=== PATIENT | male | born 1965 | race Caucasian/White ===

== ENCOUNTER 2016-08-07 10:02 | Emergency (ER) | payer MEDICAID ==
[~2016-08-07] VITALS: Wt 75.0 kg
[~2016-08-07 10:02] MED LIST: BACTDS PO; CEPH-443 PO; IBUP-1542 PO; METF500T4 PO
[2016-08-07 11:59] LABS: URINE BLOOD (Dip) POC 1+ (NEGATIVE)
[2016-08-07] MEDS ORDERED: CEPH-443 PO (12:09)
[2016-08-07] MEDS ORDERED: TAMS-14 PO (12:09)
[2016-08-07] MEDS ORDERED: BISM262O23 PO (12:13)
--- NOTE | 2016-08-07 12:16 | ERD ---
ER Documentation Chief Complaint Date/Time DATE: 08/07/16 TIME: 12:15 Chief Complaint DIARRHEA FOR 1 DAY AND DYSURIA FOR THE PAST MONTH. NO BLOOD IN DIARRHEA HPI This 50-year-old male presents with multiple complaints. He has had a sensation of dysuria for the last month. States he has had an infection in the past and is requesting antibiotics for denies any fevers or vomiting. He has an additional complaint of diarrhea for 1 day is watery without blood or mucus. Denies abdominal pain, cough, shortness breath or chest pain. He does states that his urine stream is somewhat irregular possibly sprays sometimes. Denies any penile discharge or possible exposures to recent STDs ROS All systems reviewed and are negative except as per history of present illness. Medications Home Meds Active Scripts Bismuth Subsalicylate* (Pepto-Bismol*) 262 Mg/15 Ml Oral.susp, 15 ML PO Q3H Y for DIARRHEA for 4 Days, ML Prov:REMA AGUIRRE MD 08/07/16 Tamsulosin Hcl* (Flomax*) 0.4 Mg Cap.er.24h, 0.4 MG PO QPM, #30 CAP Prov:REMA AGUIRRE MD 08/07/16 Cephalexin* (Keflex*) 500 Mg Capsule, 500 MG PO QID for 7 Days, CAP Prov:REMA AGUIRRE MD 08/07/16 Ibuprofen* (Motrin*) 600 Mg Tab, 600 MG PO Q6H Y for PAIN AND OR ELEVATED TEMP, #30 TAB Prov:KESHAV COLLINS PA-C 06/14/16 Sulfamethoxazole-Trimethoprim* (Bactrim* DS) 800-160 Mg Tab, 1 TAB PO BID for 7 Days, TAB Prov:KESHAV COLLINS PA-C 06/14/16 Cephalexin* (Keflex*) 500 Mg Capsule, 500 MG PO QID for 10 Days, CAP Prov:KESHAV COLLINS PA-C 06/14/16 Metformin* (Glucophage*) 500 Mg Tab, 500 MG PO BID, #30 TAB Prov:KESHAV COLLINS PA-C 06/14/16 Allergies Allergies: Coded Allergies: No Known Allergy (Unverified , 06/14/16) PMhx/Soc History of Surgery: No Anesthesia Reaction: No Hx Neurological Disorder: No Hx Respiratory Disorders: No Hx Cardiac Disorders: No Hx Psychiatric Problems: No Hx Alcohol Use: No Hx Substance Use: No Hx Tobacco Use: Yes Smoking Status: Current some day smoker Physical Exam Vitals Vital Signs Date Time Temp Pulse Resp B/P Pulse Ox O2 Delivery O2 Flow Rate FiO2 08/07/16 10:14 88 21 128/81 98 Physical Exam Const: [] Alert, [id number] per Head: Atraumatic Eyes: Normal Conjunctiva ENT: Normal External Ears, Nose and Mouth. Neck: Full range of motion..~ No meningismus. Resp: Clear to auscultation bilaterally Cardio: Regular rate and rhythm, no murmurs Abd: Soft, non tender, non distended. Normal bowel sounds Skin: No petechiae or rashes Back: No midline or flank tenderness Ext: No cyanosis, or edema Neur: Awake and alert Psych: Normal Mood and Affect Results 24 hrs Laboratory Tests Test 08/07/16 12:00 Bedside Urine Blood 1+ Bedside Urine Glucose (UA) 0.50% Bedside Urine Ketones (LAB) Trace Bedside Urine Leukocyte Esterase (L Negative Bedside Urine Nitrite (LAB) Negative Bedside Urine Protein (LAB) Negative Bedside Urine pH (LAB) 6.0 Procedures/MDM Urine shows slight glucose and trace ketones and hemoglobin without leukocytes, nitrites. Urine was sent for culture. Patient will be treated with Keflex by request of uncertain cause of symptoms. Patient may have prostatism will be treated with Flomax as well. Patient will referred to urology for further evaluation. Patient is advised to return for fevers, vomiting, shortness of breath or chest pain. Patient has no signs or symptoms of acute abdomen, ketoacidosis, sepsis, additional emergent causes of presenting symptoms Departure Diagnosis: Primary Impression: Diarrhea Diarrhea type: unspecified type Qualified Code: R19.7 - Diarrhea, unspecified type Additional Impression: Dysuria Condition: Stable Patient Instructions: Dysuria, Treating Diarrhea Referrals: JOSE RAMON CAMACHO MD,OSMEL Shukla MD Additional Instructions: vamos a tratar para infeccion laila no hay may infgeccion en orina horita. recomiendo un specialista para mas simptomas. REMA AGUIRRE MD Aug 07, 2016 12:16
[2016-08-07] MEDS ORDERED: METF500T4 PO (12:58)
== END 2016-08-07 12:58 | disposition home or self-care (01) ==
LOC: FTE 10:02
DX: R19.7 Diarrhea, unspecified (principal); R30.0 Dysuria; F17.210 Nicotine dependence, cigarettes, uncomplicated; E11.9 Type 2 diabetes mellitus without complications; Z79.84 Long term (current) use of oral hypoglycemic drugs
CPT/HCPCS: 81003; Z7502; 99284

== ENCOUNTER 2016-08-14 07:46 | Emergency (ER) | payer MEDICAID ==
[~2016-08-14] VITALS: Ht 167.6 cm; Wt 78.0 kg
[~2016-08-14 07:46] MED LIST changes: +BISM262O23 PO; +TAMS-14 PO
[2016-08-14 07:50] VITALS: Ht 167.6 cm; Wt 78.0 kg
[2016-08-14 08:35] LABS: ADD UMIC YES; URINE BILIRUBIN (Dip) NEGATIVE (NEGATIVE); URINE BLOOD (Dip) 1+ (NEGATIVE); URINE COLOR LT. YELLOW (YELLOW); URINE GLUCOSE (Dip) >=1000 % (NEGATIVE); URINE KETONES (Dip) TRACE (NEGATIVE); URINE LEUKOCYTE ESTERASE (Dip) NEGATIVE (NEGATIVE); URINE NITRITE (Dip) NEGATIVE (NEGATIVE); URINE TOTAL PROTEIN (Dip) TRACE (NEGATIVE); URINE UROBILINOGEN (Dip) 0.2 E.U./dL (0.1-1.0)
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
[2016-08-14 09:53] LABS: URINE RBCS 0-2 /HPF (0)
[2016-08-14] MEDS ORDERED: DOXY100T20 PO (10:04)
[2016-08-14] MEDS ORDERED: TRAM50TA2 PO (10:04)
--- NOTE | 2016-08-14 10:13 | ERD ---
ER Documentation Chief Complaint Date/Time DATE: 08/14/16 TIME: 10:08 Chief Complaint Complains of problems with urination seen 3 days ago no relief HPI This 50-year-old male presents with sensation of dysuria for last 5 days. He was seen by me earlier in the week. He was prescribed Flomax and Keflex for possible UTI although he only had hemoglobin. Patient presents with persistent sensation of dysuria. He denies any redness or rashes. His diarrhea has resolved from previous visit. Patient did not follow-up with urologist as advised per ROS All systems reviewed and are negative except as per history of present illness. Medications Home Meds Active Scripts Doxycycline Hyclate* (Doxycycline Hyclate*) 100 Mg Tablet.dr, 100 MG PO BID for 10 Days, TAB Prov:REMA AGUIRRE MD 08/14/16 Tramadol HCl (Tramadol HCl) 50 Mg Tablet, 50 MG PO Q4 Y for PAIN, #15 TAB Prov:REMA AGUIRRE MD 08/14/16 Metformin* (Glucophage*) 500 Mg Tab, 500 MG PO BID, #60 TAB Prov:REMA AGUIRRE MD 08/07/16 Bismuth Subsalicylate* (Pepto-Bismol*) 262 Mg/15 Ml Oral.susp, 15 ML PO Q3H Y for DIARRHEA for 4 Days, ML Prov:REMA AGUIRRE MD 08/07/16 Tamsulosin Hcl* (Flomax*) 0.4 Mg Cap.er.24h, 0.4 MG PO QPM, #30 CAP Prov:REMA AGUIRRE MD 08/07/16 Cephalexin* (Keflex*) 500 Mg Capsule, 500 MG PO QID for 7 Days, CAP Prov:REMA AGUIRRE MD 08/07/16 Ibuprofen* (Motrin*) 600 Mg Tab, 600 MG PO Q6H Y for PAIN AND OR ELEVATED TEMP, #30 TAB Prov:KESHAV COLLINS PA-C 06/14/16 Sulfamethoxazole-Trimethoprim* (Bactrim* DS) 800-160 Mg Tab, 1 TAB PO BID for 7 Days, TAB Prov:KESHAV COLLINS PA-C 06/14/16 Cephalexin* (Keflex*) 500 Mg Capsule, 500 MG PO QID for 10 Days, CAP Prov:KESHAV COLLINS PA-C 06/14/16 Metformin* (Glucophage*) 500 Mg Tab, 500 MG PO BID, #30 TAB Prov:KESHAV COLLINS PA-C 06/14/16 Allergies Allergies: Coded Allergies: No Known Allergy (Unverified , 06/14/16) PMhx/Soc History of Surgery: No Anesthesia Reaction: No Hx Neurological Disorder: No Hx Respiratory Disorders: No Hx Cardiac Disorders: No Hx Psychiatric Problems: No Hx Miscellaneous Medical Probl: Yes (DM) Hx Alcohol Use: No Hx Substance Use: No Hx Tobacco Use: Yes Smoking Status: Never smoker Physical Exam Vitals Vital Signs Date Time Temp Pulse Resp B/P Pulse Ox O2 Delivery O2 Flow Rate FiO2 08/14/16 10:14 18 98 Room Air 08/14/16 07:50 97.0 97 20 138/88 98 Physical Exam Const: [] Alert, dmy-fzq-voxmjucxn. Head: Atraumatic Eyes: Normal Conjunctiva ENT: Normal External Ears, Nose and Mouth. Neck: Full range of motion..~ No meningismus. Resp: Clear to auscultation bilaterally Cardio: Regular rate and rhythm, no murmurs Abd: Soft, non tender, non distended. Normal bowel sounds Skin: No petechiae or rashes Back: No midline or flank tenderness Ext: No cyanosis, or edema Neur: Awake and alert Psych: Normal Mood and Affect Results 24 hrs Laboratory Tests Test 08/14/16 08:18 Urine Bilirubin NEGATIVE Urine Clarity CLEAR Urine Color LT. YELLOW Urine Glucose >=1000% Urine Hemoglobin 1+ Urine Ketones TRACE Urine Leukocyte Esterase NEGATIVE Urine Microscopic RBC 0-2/HPF Urine Microscopic WBC NONE SEEN/HPF Urine Nitrite NEGATIVE Urine Specific [place] 1.015 Urine Total Protein TRACE Urine Urobilinogen 0.2 E.U./dL Urine pH 6.5 Procedures/MDM Urine shows trace hemoglobin and glucose without ketones, leukocytes, nitrites. Given the uncertain cause of pain a CT abdomen pelvis shows small undescended renal stones with no acute findings. Patient presents with dysuria of uncertain etiology. He may be passing small stones but will be treated for urethritis as well with doxycycline and urine will be sent for gonorrhea chlamydia. Will defer coronary treatment until lab results obtained this patient states he only has intercourse with his and there are no significant signs of gonorrhea. Patient is advised to see a urologist for further evaluation treatment otherwise we will treat with doxycycline, tramadol for pain and instructions for clear fluids. Patient has multiple complaints in addition to difficult ejaculation with intercourse which is likely due to long- standing diabetes patient is advised to follow-up with urologist for this as well. The patient was stable with no new complaints during the ER course. Clinically, there is no current evidence to suggest meningitis, sepsis, acute abdomen, pneumonia, acute coronary syndrome, pulmonary embolism, or any other emergent condition appearing to require further evaluation or hospitalization. The patient should certainly return for any new or worsening symptoms per the aftercare instructions. They should otherwise follow-up with her primary care doctor for reevaluation this week. Departure Diagnosis: Primary Impression: Genitourinary symptoms Condition: Stable Patient Instructions: Dysuria, Uncertain Cause (Adult) Referrals: JOSE RAMON CAMACHO MD,OSMEL Shukla MD Additional Instructions: examines normal ( solo posibolemente poquito piedras) recomiendo un urologico. vamois a tratar para infeccion y dolor. REMA Lemus MD Aug 14, 2016 10:13
[2016-08-14 10:14] VITALS: RESP 18
== END 2016-08-14 10:17 | disposition home or self-care (01) ==
LOC: FTE 07:46
DX: R30.0 Dysuria (principal); E11.9 Type 2 diabetes mellitus without complications; Z79.84 Long term (current) use of oral hypoglycemic drugs; Z87.891 Personal history of nicotine dependence
CPT/HCPCS: 74176; 81001; 81003; 87086; 87591

== ENCOUNTER 2016-11-06 12:19 | Emergency (ER) | payer MEDICAID ==
[~2016-11-06] VITALS: Wt 76.0 kg
[~2016-11-06 12:19] MED LIST changes: +DOXY100T20 PO; +TRAM50TA2 PO
[2016-11-06] MEDS ORDERED: LIDOCAINE 2%/EPI (MDV) 20ML INJ INJ STA (13:52)
[2016-11-06] MEDS ORDERED: DIPHTH/TET/ACEL PERTUSS (ADULT) 0.5 ML VIAL IM* ONE (14:00)
[2016-11-06] MEDS ORDERED: metFORMIN 500 MG TAB PO STA (14:37)
[2016-11-06] MEDS ORDERED: MTF1000T PO (15:56)
[2016-11-06] MEDS ORDERED: SULF1TAB31 PO (15:56)
[2016-11-06] MEDS ORDERED: CEPH-443 PO (15:56)
[2016-11-06 16:07] VITALS: BP 132/76; PULSE 78; RESP 16; TEMP 98.2
--- NOTE | 2016-11-06 16:22 | ERD ---
ER Documentation Chief Complaint Date/Time DATE: 11/06/16 TIME: 16:17 Chief Complaint ABCESS ON BACK OF NECK HPI This is a 51-year-old male with a history of diabetes type 2 presenting to the emergency department complaining of an abscess to the back of his neck for the past 2 weeks. Patient rates the pain 10 out of 10. He denies any fevers. Patient states that he has been noncompliant with his Metformin for the past 6 months since he does not have a primary care physician. He has not taken medications for this ROS All systems reviewed and are negative except as per history of present illness. Medications Home Meds Active Scripts Metformin* (Glucophage*) 1,000 Mg Tablet, 1000 MG PO BID, #60 TAB Prov:KESHAV COLLINS PA-C 11/06/16 Cephalexin* (Keflex*) 500 Mg Capsule, 500 MG PO QID for 10 Days, CAP Prov:KESHAV COLLINS PA-C 11/06/16 Sulfamethoxazole/Trimethoprim* (Bactrim Ds* Tablet) 1 Each Tablet, 1 TAB PO BID , #20 TAB Prov:KESHAV COLLINS PA-C 11/06/16 Doxycycline Hyclate* (Doxycycline Hyclate*) 100 Mg Tablet.dr, 100 MG PO BID for 10 Days, TAB Prov:REMA AGUIRRE MD 08/14/16 Tramadol HCl (Tramadol HCl) 50 Mg Tablet, 50 MG PO Q4 Y for PAIN, #15 TAB Prov:REMA AGUIRRE MD 08/14/16 Metformin* (Glucophage*) 500 Mg Tab, 500 MG PO BID, #60 TAB Prov:REMA AGUIRRE MD 08/07/16 Bismuth Subsalicylate* (Pepto-Bismol*) 262 Mg/15 Ml Oral.susp, 15 ML PO Q3H Y for DIARRHEA for 4 Days, ML Prov:REMA AGUIRRE MD 08/07/16 Tamsulosin Hcl* (Flomax*) 0.4 Mg Cap.er.24h, 0.4 MG PO QPM, #30 CAP Prov:REMA AGUIRRE MD 08/07/16 Cephalexin* (Keflex*) 500 Mg Capsule, 500 MG PO QID for 7 Days, CAP Prov:REMA AGUIRRE MD 08/07/16 Ibuprofen* (Motrin*) 600 Mg Tab, 600 MG PO Q6H Y for PAIN AND OR ELEVATED TEMP, #30 TAB Prov:KESHAV COLLINS PA-C 06/14/16 Sulfamethoxazole-Trimethoprim* (Bactrim* DS) 800-160 Mg Tab, 1 TAB PO BID for 7 Days, TAB Prov:KESHAV COLLINS PA-C 06/14/16 Cephalexin* (Keflex*) 500 Mg Capsule, 500 MG PO QID for 10 Days, CAP Prov:KESHAV COLLINS PA-C 06/14/16 Metformin* (Glucophage*) 500 Mg Tab, 500 MG PO BID, #30 TAB Prov:KESHAV COLLINS PA-C 06/14/16 Allergies Allergies: Coded Allergies: No Known Allergy (Unverified , 06/14/16) PMhx/Soc History of Surgery: No Anesthesia Reaction: No Hx Neurological Disorder: No Hx Respiratory Disorders: No Hx Cardiac Disorders: No Hx Psychiatric Problems: No Hx Miscellaneous Medical Probl: Yes (DM) Hx Alcohol Use: No Hx Substance Use: No Hx Tobacco Use: Yes Smoking Status: Current every day smoker Physical Exam Vitals Vital Signs Date Time Temp Pulse Resp B/P Pulse Ox O2 Delivery O2 Flow Rate FiO2 11/06/16 16:07 98.2 78 16 132/76 98 Room Air 11/06/16 12:23 98.7 106 17 135/75 98 Physical Exam General: WD/WN, in no apparent distress, non-toxic appearing HENT: NC/AT Eyes: Conjunctiva normal Neck: Supple Pulm: Clear to auscultation, normal labored breathing; no wheezing/rales/ rhonchi heard CV: Good capillary refill GI: Non-distended, no guarding Back: No masses Ext: No clubbing, cyanosis, or edema Neuro: Moves on all fours Skin: 3x3cm fluctuant papule on occipital scalp Psych: Normal mood Results 24 hrs Laboratory Tests Test 11/06/16 14:12 Bedside Glucose 331mg/dL Current Medications Medications (Trade) Dose Ordered Sig/Pooja Route PRN Reason Start Time Stop Time Status Last Admin Dose Admin Lidocaine/ Epinephrine (Xylocaine 2%/ Epi (Mdv) 20 ml) 20 ml ONCE STAT INJ 11/06/16 13:52 11/06/16 13:54 DC Diphtheria/ Tetanus/Acell Pertussis (Adacel) 0.5 ml ONCE ONCE IM* 11/06/16 14:00 11/06/16 14:01 DC 11/06/16 14:01 Metformin HCl (Glucophage) 1,000 mg ONCE STAT PO 11/06/16 14:37 11/06/16 14:38 DC 11/06/16 15:39 Procedures/MDM This is a 51-year-old male with a history of diabetes type 2 presenting to the emergency department complaining of an abscess to the back of his neck for the past 2 weeks. This pilar cyst versus a sebaceous cyst. There was no evidence of significant cellulitis, osteomyelitis, lymphangitis, necrotizing fasciitis. Patient will be treated empirically with Keflex and Bactrim. In the ED and incision and drainage was attempted, mild purulence was drained. I discussed the patient that he will need to follow-up with a remote broadcast technician or surgeon to remove the cyst when the inflammation goes down. Hemodynamically stable for discharge for home. Discussed two day wound check. return sooner if condition worsens. In addition patient states that he is diabetic and has not taken his metformin in 6 months. An Accu-Chek was done in the ED and he had a blood glucose level of 330. I have given patient a lengthy discussion on the importance of being compliant with medications and the complications of diabetes type 2. There was no evidence of hyperosmolar state or diabetic ketoacidosis at this time. In the ED patient was given metformin 1000 mg, I have discussed that I will refill the prescription for this month but I will like him to follow-up with the primary care physician for further evaluation and management. Patient understood and agreed with this plan. PROCEDURE NOTE: Verbal consent was obtained Wound was irrigated with normal saline Wound was cleansed with Betadine 4 cc Lidocaine 2% with epinephrine was used as a local anesthetic #11 blade scalpel was used for a single 0.25cm incision. Wound packed with iodoform gauze strips Procedure tolerated without complications Wound dressed with sterile gauze. Departure Diagnosis: Primary Impression: Infected sebaceous cyst Condition: Stable Patient Instructions: Sebaceous Cyst, Infected (Abx Tx), Sebaceous Cyst, Infected (I And D) Referrals: [facility] YOU HAVE RECEIVED A MEDICAL SCREENING EXAM AND THE RESULTS INDICATE THAT YOU DO NOT HAVE A CONDITION THAT REQUIRES URGENT TREATMENT IN THE EMERGENCY DEPARTMENT. FURTHER EVALUATION AND TREATMENT OF YOUR CONDITION CAN WAIT UNTIL YOU ARE SEEN IN YOUR DOCTORS OFFICE WITHIN THE NEXT 1-2 DAYS. IT IS YOUR RESPONSIBILITY TO MAKE AN APPOINTMENT FOR FOLOW-UP CARE. IF YOU HAVE A PRIMARY DOCTOR --you should call your primary doctor and schedule an appointment IF YOU DO NOT HAVE A PRIMARY DOCTOR YOU CAN CALL OUR PHYSICIAN REFERRAL HOTLINE AT IF YOU CAN NOT AFFORD TO SEE A PHYSICIAN YOU CAN CHOSE FROM THE FOLLOWING [facility] [address] [facility]. [facility] [address] [facility] [address] [facility] [address] [facility]. [facility] [address] [facility]. [facility] [address] [facility]. [facility] YOU HAVE RECEIVED A MEDICAL SCREENING EXAM AND THE RESULTS INDICATE THAT YOU DO NOT HAVE A CONDITION THAT REQUIRES URGENT TREATMENT IN THE EMERGENCY DEPARTMENT. FURTHER EVALUATION AND TREATMENT OF YOUR CONDITION CAN WAIT UNTIL YOU ARE SEEN IN YOUR DOCTORS OFFICE WITHIN THE NEXT 1-2 DAYS. IT IS YOUR RESPONSIBILITY TO MAKE AN APPOINTMENT FOR FOLOW-UP CARE. IF YOU HAVE A PRIMARY DOCTOR --you should call your primary doctor and schedule and appointment IF YOU DO NOT HAVE A PRIMARY DOCTOR YOU CAN CALL OUR PHYSICIAN REFERRAL HOTLINE AT . IF YOU CAN NOT AFFORD TO SEE A PHYSICIAN YOU CAN CHOSE FROM THE FOLLOWING [facility]: [facility] [address] [place] [address] [facility] [address] [place] [address] [facility] [address] [place] [address] [facility] URGENT CARE/SPECIALTIES Additional Instructions: Follow up in 2 days in your clinic for wound check. Take all medicines as directed. Return to this facility if you are not improving as expected. FOLLOW UP WITH YOUR PRIMARY CARE PHYSICIAN TOMORROW.Return to this facility if you are not improving as expected. KESHAV COLLINS PA-C November 06, 2016 16:22
== END 2016-11-06 16:08 | disposition home or self-care (01) ==
LOC: FTE 12:19
DX: L72.3 Sebaceous cyst (principal); L08.89 Other specified local infections of the skin and subcutaneous tissue; E11.9 Type 2 diabetes mellitus without complications; F17.210 Nicotine dependence, cigarettes, uncomplicated; Z23 Encounter for immunization; Z79.84 Long term (current) use of oral hypoglycemic drugs
CPT/HCPCS: 10061; 82962; 90471; 90715; Z7502; Z7610

== ENCOUNTER 2016-11-08 09:30 | Emergency (ER) | payer MEDICAID ==
[~2016-11-08] VITALS: Ht 162.6 cm; Wt 83.1 kg
[~2016-11-08 09:30] MED LIST changes: +MTF1000T PO; +SULF1TAB31 PO
[2016-11-08 09:35] VITALS: Ht 162.6 cm; Wt 83.1 kg
--- NOTE | 2016-11-08 10:27 | ERD ---
ER Documentation Chief Complaint Date/Time DATE: 11/08/16 TIME: 10:24 Chief Complaint wound check, back neck HPI This 51-year-old male who presents to the emergency department today for a wound check of the wound that he had drained 2 days ago. Patient states he is taking his antibiotics. States he smokes cigarettes. Denies any fevers or chills. ROS All systems reviewed and are negative except as per history of present illness. Medications Home Meds Active Scripts Metformin* (Glucophage*) 1,000 Mg Tablet, 1000 MG PO BID, #60 TAB Prov:KESHAV COLLINS PA-C 11/06/16 Cephalexin* (Keflex*) 500 Mg Capsule, 500 MG PO QID for 10 Days, CAP Prov:KESHAV COLLINS PA-C 11/06/16 Sulfamethoxazole/Trimethoprim* (Bactrim Ds* Tablet) 1 Each Tablet, 1 TAB PO BID , #20 TAB Prov:KESHAV COLLINS PA-C 11/06/16 Doxycycline Hyclate* (Doxycycline Hyclate*) 100 Mg Tablet.dr, 100 MG PO BID for 10 Days, TAB Prov:REMA AGUIRRE MD 08/14/16 Tramadol HCl (Tramadol HCl) 50 Mg Tablet, 50 MG PO Q4 Y for PAIN, #15 TAB Prov:REMA AGUIRRE MD 08/14/16 Metformin* (Glucophage*) 500 Mg Tab, 500 MG PO BID, #60 TAB Prov:REMA AGUIRRE MD 08/07/16 Bismuth Subsalicylate* (Pepto-Bismol*) 262 Mg/15 Ml Oral.susp, 15 ML PO Q3H Y for DIARRHEA for 4 Days, ML Prov:REMA AGUIRRE MD 08/07/16 Tamsulosin Hcl* (Flomax*) 0.4 Mg Cap.er.24h, 0.4 MG PO QPM, #30 CAP Prov:REMA AGUIRRE MD 08/07/16 Cephalexin* (Keflex*) 500 Mg Capsule, 500 MG PO QID for 7 Days, CAP Prov:REMA AGUIRRE MD 08/07/16 Ibuprofen* (Motrin*) 600 Mg Tab, 600 MG PO Q6H Y for PAIN AND OR ELEVATED TEMP, #30 TAB Prov:KESHAV COLLINS PA-C 06/14/16 Sulfamethoxazole-Trimethoprim* (Bactrim* DS) 800-160 Mg Tab, 1 TAB PO BID for 7 Days, TAB Prov:KESHAV COLLINS PA-C 06/14/16 Cephalexin* (Keflex*) 500 Mg Capsule, 500 MG PO QID for 10 Days, CAP Prov:KESHAV COLLINS PA-C 06/14/16 Metformin* (Glucophage*) 500 Mg Tab, 500 MG PO BID, #30 TAB Prov:KESHAV COLLINS PA-C 06/14/16 Allergies Allergies: Coded Allergies: No Known Allergy (Unverified , 06/14/16) PMhx/Soc Medical and Surgical Hx: pt denies Medical Hx, pt denies Surgical Hx History of Surgery: No Anesthesia Reaction: No Hx Neurological Disorder: No Hx Respiratory Disorders: No Hx Cardiac Disorders: No Hx Psychiatric Problems: No Hx Miscellaneous Medical Probl: Yes (DM) Hx Alcohol Use: No Hx Substance Use: No Hx Tobacco Use: Yes Smoking Status: Never smoker Physical Exam Vitals Vital Signs Date Time Temp Pulse Resp B/P Pulse Ox O2 Delivery O2 Flow Rate FiO2 11/08/16 09:35 98.4 82 18 145/72 99 Physical Exam Const: No acute distress Head: Evidence of wound with wound packing. No purulent drainage. No erythema or warmth Eyes: Normal Conjunctiva ENT: Normal External Ears, Nose and Mouth. Neck: Full range of motion..~ No meningismus. Resp: Clear to auscultation bilaterally Cardio: Regular rate and rhythm, no murmurs Skin: Wound with wound packing. No purulent drainage. No erythema or warmth Neur: Awake and alert Psych: Normal Mood and Affect Procedures/MDM This is a 51-year-old male who presents the emergency department today for a wound check of a wound that he had drained 2 days ago here in the emergency department. Patient was diagnosed with an infected sebaceous cyst on the back of his head. The wound was drained at that time. Patient had the wound packed and was given a prescription for Bactrim and Keflex. Patient reportedly is taking his medication and he denies any fevers. He is afebrile and otherwise well-appearing at this time. Low suspicion for cellulitis, deep space infection , sepsis. Iodoform packing was removed and the wound was dressed here in the emergency department. Patient was instructed to stop smoking cigarettes to help with wound healing. He was instructed to continue taking his in about excess prescribed as well to follow-up on his medication for his diabetes. At this time the patient is stable for discharge and outpatient management. Patient should follow up with their PCP in the next 1-2 days. They may return to the emergency department sooner for any persistent or worsening of symptoms. Patient understood and agreed with the plan. Departure Diagnosis: Primary Impression: Encounter for wound re-check Condition: Fair Patient Instructions: Wound Care Referrals: [facility] YOU HAVE RECEIVED A MEDICAL SCREENING EXAM AND THE RESULTS INDICATE THAT YOU DO NOT HAVE A CONDITION THAT REQUIRES URGENT TREATMENT IN THE EMERGENCY DEPARTMENT. FURTHER EVALUATION AND TREATMENT OF YOUR CONDITION CAN WAIT UNTIL YOU ARE SEEN IN YOUR DOCTORS OFFICE WITHIN THE NEXT 1-2 DAYS. IT IS YOUR RESPONSIBILITY TO MAKE AN APPOINTMENT FOR FOLOW-UP CARE. IF YOU HAVE A PRIMARY DOCTOR --you should call your primary doctor and schedule an appointment IF YOU DO NOT HAVE A PRIMARY DOCTOR YOU CAN CALL OUR PHYSICIAN REFERRAL HOTLINE AT IF YOU CAN NOT AFFORD TO SEE A PHYSICIAN YOU CAN CHOSE FROM THE FOLLOWING [facility] [address] [facility]. [facility] [address] [facility]. [email or web address] [address] [facility] [address] [facility]. [facility] [address] [facility]. [facility]. [address] Additional Instructions: Call your primary care doctor TOMORROW for an appointment during the next 1-2 days.See the doctor sooner or return here if your condition worsens before your appointment time. Continue taking her antibiotics as prescribed Stop smoking cigarettes Keep wound clean Follow-up with your primary care doctor about your diabetes DIVINA AARON PA-C November 08, 2016 10:27
== END 2016-11-08 10:34 | disposition home or self-care (01) ==
LOC: FTE 09:30
DX: Z48.01 Encounter for change or removal of surgical wound dressing (principal); E11.9 Type 2 diabetes mellitus without complications; Z87.891 Personal history of nicotine dependence; Z79.84 Long term (current) use of oral hypoglycemic drugs
CPT/HCPCS: 99281

== ENCOUNTER 2017-01-24 20:08 | Emergency (ER) | payer MEDICAID ==
[~2017-01-24] VITALS: Ht 167.6 cm; Wt 72.0 kg
[2017-01-24 20:16] VITALS: Ht 167.6 cm; Wt 72.0 kg
[2017-01-24 21:02] LABS: URINE BLOOD (Dip) POC 1+ (NEGATIVE)
[2017-01-24] MEDS ORDERED: CEPH-443 PO (21:43)
[2017-01-24] MEDS ORDERED: CLOT30CR24 TOP (21:43)
[2017-01-24] MEDS ORDERED: METF500T4 PO (21:52)
[2017-01-24] MEDS ORDERED: MTF1000T PO (21:55)
--- NOTE | 2017-01-24 22:52 | ERD ---
ER Documentation Chief Complaint Date/Time DATE: 01/24/17 TIME: 22:47 Chief Complaint c/o dysuria x 3 days. HPI 51-year-old male patient with a past medical history of Diabetes presents the ED complaining of dysuria that started 3 days ago. States that it is painful when he retracts his foreskin because he thinks that there is purulent discharge. Denies any fever, abdominal pain, nausea, vomiting, diarrhea, constipation. Denies any scrotal trauma. Reports that the last time he had sexual intercourse with his ex- was 3 weeks ago. States that he has 1 sexual partner. Denies any penile discharge, urgency, frequency, hematuria. ROS All systems reviewed and are negative except as per history of present illness. Medications Home Meds Active Scripts Metformin* (Glucophage*) 1,000 Mg Tablet, 1000 MG PO BID, #20 TAB Prov:LISBETH PICKERING PA-C 01/24/17 Clotrimazole* (Clotrimazole* AF) 1% - 30 Gm Cream.gm., 1 APPLIC TOP BID for 7 Days, TUB Prov:LISBETH PICKERING PA-C 01/24/17 Cephalexin* (Keflex*) 500 Mg Capsule, 500 MG PO QID for 10 Days, CAP Prov:LISBETH PICKERING PA-C 01/24/17 Metformin* (Glucophage*) 1,000 Mg Tablet, 1000 MG PO BID, #60 TAB Prov:KESHAV COLLINS PA-C 11/06/16 Cephalexin* (Keflex*) 500 Mg Capsule, 500 MG PO QID for 10 Days, CAP Prov:KESHAV COLLINS PA-C 11/06/16 Sulfamethoxazole/Trimethoprim* (Bactrim Ds* Tablet) 1 Each Tablet, 1 TAB PO BID , #20 TAB Prov:KESHAV COLLINS PA-C 11/06/16 Doxycycline Hyclate* (Doxycycline Hyclate*) 100 Mg Tablet.dr, 100 MG PO BID for 10 Days, TAB Prov:REMA AGUIRRE MD 08/14/16 Tramadol HCl (Tramadol HCl) 50 Mg Tablet, 50 MG PO Q4 Y for PAIN, #15 TAB Prov:REMA AGUIRRE MD 08/14/16 Metformin* (Glucophage*) 500 Mg Tab, 500 MG PO BID, #60 TAB Prov:REMA AGUIRRE MD 08/07/16 Bismuth Subsalicylate* (Pepto-Bismol*) 262 Mg/15 Ml Oral.susp, 15 ML PO Q3H Y for DIARRHEA for 4 Days, ML Prov:REMA AGUIRRE MD 08/07/16 Tamsulosin Hcl* (Flomax*) 0.4 Mg Cap.er.24h, 0.4 MG PO QPM, #30 CAP Prov:REMA AGUIRRE MD 08/07/16 Cephalexin* (Keflex*) 500 Mg Capsule, 500 MG PO QID for 7 Days, CAP Prov:REMA AGUIRRE MD 08/07/16 Ibuprofen* (Motrin*) 600 Mg Tab, 600 MG PO Q6H Y for PAIN AND OR ELEVATED TEMP, #30 TAB Prov:KESHAV COLLINS PA-C 06/14/16 Sulfamethoxazole-Trimethoprim* (Bactrim* DS) 800-160 Mg Tab, 1 TAB PO BID for 7 Days, TAB Prov:KESHAV COLLINS PA-C 06/14/16 Cephalexin* (Keflex*) 500 Mg Capsule, 500 MG PO QID for 10 Days, CAP Prov:KESHAV COLLINS PA-C 06/14/16 Metformin* (Glucophage*) 500 Mg Tab, 500 MG PO BID, #30 TAB Prov:KESHAV COLLINS PA-C 06/14/16 Allergies Allergies: Coded Allergies: No Known Allergy (Unverified , 01/24/17) PMhx/Soc Medical and Surgical Hx: pt denies Surgical Hx History of Surgery: Yes (appendix; hernia; ) Anesthesia Reaction: No Hx Neurological Disorder: No Hx Respiratory Disorders: No Hx Cardiac Disorders: No Hx Psychiatric Problems: No Hx Miscellaneous Medical Probl: Yes (DM) Hx Alcohol Use: No Hx Substance Use: No Hx Tobacco Use: Yes Smoking Status: Current every day smoker Physical Exam Vitals Vital Signs Date Time Temp Pulse Resp B/P Pulse Ox O2 Delivery O2 Flow Rate FiO2 01/24/17 20:16 98.2 96 18 145/73 100 Physical Exam Const: [id number], well-nourished. In no acute distress. Head: Atraumatic, normocephalic Eyes: Normal Conjunctiva without injection. No purulent discharge. ENT: Normal external ear, nose. Moist oropharynx without tonsillar exudates. Non -erythematous pharynx. Uvula midline. No drooling. No trismus. Neck: No cervical midline tenderness. Full range of motion. No meningismus. No cervical lymphadenopathy. No JVD. Resp: Clear to auscultation bilaterally. No wheezing, rhonchi, rales, or crackles. No accessory muscle use. No retractions. Cardio: Regular rate and rhythm. No murmurs, rubs or gallops. Abd: Soft, non distended. Normal bowel sounds. No palpable masses. No rebound tenderness. No guarding. Negative McBurney's point. Negative psoas sign. Negative obturator sign. : Normal external genitalia. Noncircumcised. No paraphimosis. No hernias. No phimosis. No penile discharge. Slight cheesy discharge/purulent discharge surrounding the glans penis - pain with retraction. Skin: No petechiae or rashes Back: No midline tenderness. No CVA tenderness. Ext: No cyanosis, or edema. Neur: Awake and alert. Normal gait. Normal coordination. Psych: Normal Mood and Affect Results 24 hrs Laboratory Tests Test 01/24/17 21:08 Bedside Urine pH (LAB) 7.0 Bedside Urine Protein (LAB) Negative Bedside Urine Glucose (UA) 0.50% Bedside Urine Ketones (LAB) Trace Bedside Urine Blood 1+ Bedside Urine Nitrite (LAB) Negative Bedside Urine Leukocyte Esterase (L Negative Procedures/MDM 51-year-old male patient with a past medical history of diabetes presents to the ED complaining of discharge surrounding the glans penis and dysuria that started 3 days ago. Patient is afebrile nontoxic appearing. Patient has normal vital signs. Urine dip showed 0.50% glucose, trace ketones, 1+ hematuria. No nitrite or leukocyte esterase noted. Urine culture will be pending. Low suspicion for testicular torsion, UTI, pyelonephritis, STDs, or other emergent conditions. Low suspicion for gastritis, GERD, peptic ulcer disease, cholecystitis, choledocholithiasis, cholangitis, pancreatitis, appendicitis, bowel obstruction, ileus, volvulus, nephrolithiasis, pyelonephritis, hepatitis, perforated viscus, diverticulitis, abdominal hernia, acute abdomen, mesenteric ischemia or other emergent conditions. This case was discussed with my supervising physician Dr. Dumont who agreed with the management and discharge plan. Discharge medications: Medication refill for 1,000 mg Metformin, Keflex, Clotrimazole Follow up with primary care physician in 1-2 days. Instructed patient to return to the ED sooner for any worsening symptoms. Patient's questions were answered. Patient understood and agreed with discharge plan. Patient discharged stable. Departure Diagnosis: Primary Impression: Dysuria Additional Impression: Balanitis Condition: Stable Patient Instructions: Dysuria, Diabetes: Caring for Your Body, Diabetes: Exams and Tests, Balanitis Referrals: [facility] YOU HAVE RECEIVED A MEDICAL SCREENING EXAM AND THE RESULTS INDICATE THAT YOU DO NOT HAVE A CONDITION THAT REQUIRES URGENT TREATMENT IN THE EMERGENCY DEPARTMENT. FURTHER EVALUATION AND TREATMENT OF YOUR CONDITION CAN WAIT UNTIL YOU ARE SEEN IN YOUR DOCTORS OFFICE WITHIN THE NEXT 1-2 DAYS. IT IS YOUR RESPONSIBILITY TO MAKE AN APPOINTMENT FOR FOLOW-UP CARE. IF YOU HAVE A PRIMARY DOCTOR --you should call your primary doctor and schedule an appointment IF YOU DO NOT HAVE A PRIMARY DOCTOR YOU CAN CALL OUR PHYSICIAN REFERRAL HOTLINE AT IF YOU CAN NOT AFFORD TO SEE A PHYSICIAN YOU CAN CHOSE FROM THE FOLLOWING [facility] [address] [facility]. [facility] [address] [facility] [facility] [address] [facility] [facility] [address] [facility] [facility] [address] [facility]. [facility]. [address] [facility]. [facility] YOU HAVE RECEIVED A MEDICAL SCREENING EXAM AND THE RESULTS INDICATE THAT YOU DO NOT HAVE A CONDITION THAT REQUIRES URGENT TREATMENT IN THE EMERGENCY DEPARTMENT. FURTHER EVALUATION AND TREATMENT OF YOUR CONDITION CAN WAIT UNTIL YOU ARE SEEN IN YOUR DOCTORS OFFICE WITHIN THE NEXT 1-2 DAYS. IT IS YOUR RESPONSIBILITY TO MAKE AN APPOINTMENT FOR FOLOW-UP CARE. IF YOU HAVE A PRIMARY DOCTOR --you should call your primary doctor and schedule and appointment IF YOU DO NOT HAVE A PRIMARY DOCTOR YOU CAN CALL OUR PHYSICIAN REFERRAL HOTLINE AT . IF YOU CAN NOT AFFORD TO SEE A PHYSICIAN YOU CAN CHOSE FROM THE FOLLOWING [facility] INSTITUTIONS: [facility] [address] [place] [address] [facility] [address] [place], [place] [id number] [place] [address] [address] [place] [address] [facility] URGENT CARE/SPECIALTIES Additional Instructions: Llame al doctor MAANA y trisha katie ALLAN PARA DENTRO DE 2-3 VARGAS.Dgale a la secretaria que nosotros le instruimos hacer esta allan.Avise o llame si awlsh condicin se empeora antes de la allan. Regresa aqui si peor o no mejor. LISBETH PICKERING PA-C Jan 24, 2017 22:52
[2017-01-31 16:13] LABS: URINE BLOOD (Dip) POC 1+ (NEGATIVE)
== END 2017-01-24 22:11 | disposition home or self-care (01) ==
LOC: FTE 20:08
DX: R30.0 Dysuria (principal); N48.1 Balanitis; E11.9 Type 2 diabetes mellitus without complications; F17.210 Nicotine dependence, cigarettes, uncomplicated; Z79.84 Long term (current) use of oral hypoglycemic drugs
CPT/HCPCS: 81003; 87086; Z7502; 99284

== ENCOUNTER 2017-10-05 09:22 | Emergency (ER) | END 2017-10-05 14:05 | disposition home or self-care (01) ==

== ENCOUNTER 2017-12-09 20:19 | Emergency (ER) | END 2017-12-10 01:26 | disposition home or self-care (01) ==

== ENCOUNTER 2017-12-14 09:04 | Emergency (ER) | END 2017-12-14 12:26 | disposition home or self-care (01) ==